=== PATIENT | male | born 1980 | race Two or more races ===

== ENCOUNTER 2016-10-15 10:05 | Day surgery (SDC) | payer BC ==
[2016-10-15] VITALS (8 sets, daily range): BP systolic 99–134; BP diastolic 62–79; PULSE 68–87; RESP 12–20; Ht 170.2 cm; Wt 85.2 kg
[~2016-10-15] VITALS: Ht 170.2 cm; Wt 85.2 kg
[2016-10-15] MEDS ORDERED: BUPIVACAINE 0.25% (MPF) 30 ML INJ ONE (11:44)
[2016-10-15] MEDS ORDERED: MIDAZOLAM 1 MG/ML 2 ML INJ ONE (11:49)
[2016-10-15] MEDS ORDERED: FENTAnyl 50 MCG/ML VIAL ONE (11:49)
[2016-10-15] MEDS ORDERED: PROPOFOL 20 ML ONE (11:49)
[2016-10-15] MEDS ORDERED: SOD CHLORIDE 0.9% 1,000 ML IV ONE (12:00)
[2016-10-15] MEDS ORDERED: CEFAZOLIN 2 GM/50 ML (PMX) 50 ML IVPB ONE (12:00)
[2016-10-15] MEDS ORDERED: CEFAZOLIN 1 GM INJ ONE (12:08)
[2016-10-15] MEDS ORDERED: BUPIVACAINE 0.5% (MPF) 30 ML INJ INJ ONE (12:22)
--- NOTE | 2016-10-15 12:59 | OPR ---
DATE OF OPERATION: 10/15/2016 INDICATION: This is a 36-year-old male with left arm masses x3. He requests surgical excision. Th e risks, alternatives, benefits, and personnel were discussed with the patient. The patient express ed understanding and consented to the operation. PREOPERATIVE DIAGNOSIS: Left arm masses x3. POSTOPERATIVE DIAGNOSIS: Left arm masses x3. OPERATION PERFORMED: 1. Excision of left upper posterior arm mass with a 3-cm size incision and a 3-cm size mass. 2. Excision of left lower superior arm mass with a 1-cm size incision and a 1-cm size mass. 4. Left lower arm lower posterior mass with a 1-cm size incision and a 1-cm size mass. 5. Localized adjacent tissue transfer with the use of skin flaps, with a total tissue defect of 6 c m. SURGEON: Jerzy Mulligan MD SPECIMENS: Left upper posterior arm mass and left lower posterior arm masses x2. COMPLICATIONS: None. ANESTHESIA: General. PROCEDURE: The patient was taken to the OR and prepped and draped in the usual sterile fashion. A surgical timeout was performed. IV antibiotics were given. An incision was made over the left uppe r posterior arm mass with a 15 blade. Dissection cautery was carried down to the mass and circumfer entially excised. There was good hemostasis. Due to the tissue defect, localized adjacent tissue t ransfer with the use of skin flaps was performed. Closure with skin tracey was performed. Local a nesthesia was injected. Attention was paid to the left lower arm posterior masses. Incisions were made over the 2 masses wi th a 15 blade. Dissection cautery was carried down to the masses and circumferentially excised. Du e to the tissue defect, localized adjacent tissue transfer with the use of skin flaps was performed. Ultimately closure of the skin was performed with skin tracey. Local anesthesia was injected int o both sites. Dry dressings were applied. Dictated By: JERZY MULLIGAN MD SB/FERNANDO Conf#: [id number] DID#: [id number]
[2016-10-15] MEDS ORDERED: morphine (1 MG/ML) 10ML SYRINGE IV PRN ×2 (13:00)
[2016-10-15] MEDS ORDERED: DIPHENHYDRAMINE 50 MG INJ IV PRN (13:00)
[2016-10-15] MEDS ORDERED: METOCLOPRAMIDE 10 MG INJ IV PRN (13:00)
[2016-10-15] MEDS ORDERED: ACETAMINOPHEN/CODEINE #3 TAB PO ONE (13:00)
[2016-10-15] MEDS ORDERED: MIDAZOLAM 1 MG/ML 2 ML INJ IV PRN (13:00)
[2016-10-15] MEDS ORDERED: MEPERIDINE 25 MG INJ IV PRN (13:00)
[2016-10-15] MEDS ORDERED: ONDANSETRON 4 MG INJ IV PRN (13:00)
[2016-10-15] MEDS ORDERED: FENTAnyl 50 MCG/ML VIAL IV PRN ×2 (13:00)
== END 2016-10-15 14:38 | disposition home or self-care (01) ==
LOC: SDS 10:05
PROVIDERS: ATTEND Surgery
DX: D17.22 Benign lipomatous neoplasm of skin and subcutaneous tissue of left arm (principal); E78.5 Hyperlipidemia, unspecified
CPT/HCPCS: 14020; 88307; J0690; J2250; J3010